=== PATIENT | female | born 1965 | race Two or more races ===

== ENCOUNTER 2025-06-25 13:00 | Emergency (ER) | payer MEDICAID, SELFPAY ==
[2025-06-25 13:58] VITALS: PULSE 100; RESP 20; O2SAT 97
--- NOTE | 2025-06-25 14:14 | EDNOTE_ITS ---
ED General RME/HPI General Chief complaint: Weakness Stated complaint: LEFT LWR BACK PAIN RADIATE FRONT W/ WEAK & HIGH BP Time Seen by Provider: 06/25/25 14:08 Arrival date/time: 06/25/25 13:00 RME / HPI RME / HPI narrative: DR. ANDERSON MAIN ED EVALUATION: 60-year-old female with a history of diabetes presents with left lower back pain radiating to the anterior lower abdomen. Blood glucose of 135 on arrival. No additional symptoms reported. Patient denies any tobacco, alcohol, or substance use. Related Data Allergies Allergy/AdvReac Type Severity Reaction Status Date / Time No Known Allergies Allergy Verified 06/25/25 15:05 Review of Systems Review of Systems Systems Reviewed: All systems reviewed, normal except as documented Past Medical History Past Medical History ENDOCRINE: Positive Diabetes Mellitus Type 2 Social History SMOKING STATUS: Never smoker SUBSTANCE USE: does not use ALCOHOL: Never ED Exam Narrative Physical exam: Physical Exam: General: The vital signs were reviewed. The patient is non-toxic, in no apparent distress and appears healthy with a patent airway, no respiratory distress and has no apparent circulatory problems. Head & Scalp: Normocephalic, atraumatic. Face: Appears normal and is without lesions, deformity. Ears: Left external pinna appears normal. Right external pinna appears normal. Eyes: The sclera is anicteric. No obvious photophobia. The Left and Right Orbit/Lid/Conjunctiva appears normal without swelling, discoloration or injection. Nose: The nose is without deformity, discharge or tenderness; Throat: Appears normal. The mucous membranes are pink and moist without exudates, redness or mass seen. The tongue appears normal. Neck: The neck is supple and no apparent mass or adenopathy. Chest: The chest wall is normal in size and symmetry and has no chest wall tenderness or crepitus. The patient displays normal ventilator effort without retractions, accessory muscle use and has adequate air movement bilaterally with no wheezes and no rales. Cardiovascular: Regular rate and rhythm; No murmurs, rubs, or gallops; Gastrointestinal: The abdomen appears normal. No obvious hernias or mass. The abdomen is soft and benign, non-distended, with no pain, no guarding and no rebound tenderness. Bowel sounds are present and normal sounding. No CVA tenderness. Genitourinary: Back/Spine: Inspection appears normal she has left lumbar iliolumbar discomfort but is not palpable does not seem to be worse with movement. There is no rash there is no lesions. Extremities/Musculoskeletal/lymphatic: The bilateral upper and lower extremities are warm. There is no evidence of arterial insufficiency. There is no evidence of venous insufficiency/edema. The patient spontaneously moves bilateral upper and lower extremities with no pain and no limitation of movement. There is no apparent, injury or trauma. Skin: The skin is warm, dry and intact. No rashes. No petechia. No purpura. No abnormal bruising. The color is appropriate with no cyanosis. Mental status/Psychiatric: Mental status is appropriate for age. The patient has no apparent delusions, visual hallucinations, no apparent audible hallucinations. The patient has no apparent suicidal thoughts/ideation and no apparent homicidal thoughts/ideation. Neurological: The patient is awake, alert, interactive, cordial, cooperative and is oriented to name and situation. The patient follows commands and answers historical question with no impairment. There is no visual disturbance apparent. The pupils are equal and reactive bilaterally with normal eye movements and no diplopia The bilateral upper and lower extremities have normal strength, normal range of motion and normal functioning. The gait, station and balance appear to be baseline with no acute change Course Quality Measures none Orders Category Date Time Status EKG (ED ONLY) *Do not use* NOW Care 06/25/25 14:15 Completed NPO NOW Care 06/25/25 14:15 Active Diet NPO (NOW) Diet 06/25/25 14:[address] abdomen pelvis wo con Stat Exams 06/25/25 14:[address] lumbar spine wo con Stat Exams 06/25/25 14:14 Completed EKG (ED Only) Stat Exams 06/25/25 14:15 Draft B-Type Natriuretic Peptide Stat Lab 06/25/25 14:57 Completed CBC Stat Lab 06/25/25 14:57 Completed Comprehensive Metabolic Panel Stat Lab 06/25/25 14:57 Completed HCG Qualitative,Urine Stat Lab 06/25/25 14:30 Completed Lactate (Lactic Acid) Stat Lab 06/25/25 14:57 Completed Lipase Stat Lab 06/25/25 14:57 Completed Troponin I Stat Lab 06/25/25 14:57 Completed Urinalysis Stat Lab 06/25/25 14:30 Completed Urinalysis, C/S if Indicated Stat Lab 06/25/25 14:30 Completed Sodium Chloride 0.9% 1000 ml [Ns] 1,000 ml Med 06/25/25 14:16 Discontinued IV 999 mls/hr Vital Signs Vital signs: Vital Signs Temperature 99 F 06/25/25 14:30 Pulse Rate 91 06/25/25 14:30 Respiratory Rate 18 06/25/25 14:30 Blood Pressure 164/99 H 06/25/25 14:30 Pulse Oximetry (%) 95 06/25/25 14:30 Oxygen Delivery Method Room Air 06/25/25 14:30 Discharge Plan Plan Patient Disposition: HOME (Self Care) Prescriptions/Referrals Referrals: No Primary/Family,Physician [Primary Care Provider] - In 1 week Problem List Clinical Impression: Calculus of distal left ureter, Hematuria Patient/Caregiver Discharge Instructions Education Materials: Kidney Stones Expectant Tx Additional Instructions: Today you have a kidney stone 2 mm at the distal left ureterovesicular junction. As discussed this will probably pass on its own. If you are getting worse in any way please return for reevaluation you can use a urine strainer to collect the stone and if 1 is found please submit this to your doctor for further evaluation. As we discussed drink plenty of fluids to avoid forming further stones. If you are getting sick in any way please return for reevaluation. Print Language: Chinese MDM Narrative [facility] hospital course: I, Chanell Salinas, am scribing for and in the presence of Dr. Anderson. Patient presents with left-sided flank and lower lumbar pain on the left that radiates to the right and around to the front which which has no obvious etiology. Patient seems to have moderate discomfort with this pain osseous etiology. Does not appear to be musculoskeletal as it is not movement dependent. Will get some basic labs also CT of the lumbar spine reveals no acute problem there is multiple levels of disc impingement of no significant as the CT of the abdomen revealed an obvious 2 mm distal ileal ureteral stone with hematuria suggesting her real problem is a renal stone. Reevaluation of the patient at 1700 hrs. shows patient be comfortable smiling her daughter is present we discussed the case at great length and they will give her a strainer and follow-up with her doctor return if getting worse. Clinical Information Provided by patient Medical Records Reviewed [facility] Meds/Rx Considered, not Ordered None Labs/Rad/Tests considered, not Ordered None Chronic Illness/Social Conditions Add or document further as needed: diabetes EKG EKG Interpretation narrative: My interpretation: EKG performed at 1421 hours, sinus rhythm, rate 84, no STEMI Lab Interpretation Labs: see narrative above Imaging Imaging interpretation: see narrative above Radiology reports / interpretation(s): Procedure(s): CT abdomen pelvis wo con Accession Number(s): [id number] cc: Endy Anderson MD; Toni Dominguez MD; NO PRIMARY/FAMILY,PHYSICIAN~ Examination: CT abdomen and pelvis without contrast. Coronal 3-D reconstructions. Sagittal 2-D reconstructions. Date and time of exam:June 25, 2025, 1434 hours INDICATIONS: Left-sided abdominal pain beginning today CTDI: vol (mGy): 19.2 DLP: (mGycm): 1140 Technique: Axial images of the abdomen have been obtained, 3 mm slice thickness Intravenous contrast material has not been administered. Low dose protocols were performed. One or more of the following dose reduction techniques were used; automated exposure control, adjustment of the mA and/or KV according to patient size, use of iterative reconstruction technique. Findings: Trace pericardial effusion No focal liver or splenic lesion Absent gallbladder No pancreatic or adrenal mass Mild left hydronephrosis secondary to 2 mm distal left ureterovesical junction calculus, image 214 No bowel obstruction Aorta normal size Normal appendix No bladder mass or bladder calculi IMPRESSION: Mild left hydronephrosis secondary to 2 mm distal left ureterovesical junction calculus Dictated By: Toni Dominguez MD Procedure(s): CT lumbar spine wo con Accession Number(s): [id number] cc: Endy Anderson MD; Toni Dominguez MD; NO PRIMARY/FAMILY,PHYSICIAN~ Examination: CT lumbar spine, without contrast. 2-D sagittal reconstructions. 2-D coronal reconstructions. 3-D reconstructions. Date and time of exam:2024 1436 hours INDICATIONS: Onset lower back pain today CTDI: vol (mGy):52.2 DLP: (mGycm):692 Technique: Multiple 1.25 mm axial sections of the lumbar spine without intravenous contrast have been obtained. 2-D sagittal and coronal reconstructions have been obtained. 3-D reconstructions have been obtained. Low dose protocols were performed. One or more of the following dose reduction techniques were used; automated exposure control, adjustment of the mA and/or KV according to patient size, use of iterative reconstruction technique. Findings: Adequate alignment lumbar vertebral bodies on lateral view Advanced degenerative disc disease L5-S1 No spondylolisthesis Lumbar pedicles, laminae, transverse and posterior spinous processes intact L5-S1 partially calcified 6 mm central lumbar disc bulge contiguous with the right and left S1 nerve roots, extending to both the right and left intervertebral foramen with mild bilateral L5 ganglionic compression L4-L5 2 mm central lumbar disc bulge L3-L4 moderate overall spinal stenosis, axial image 72, primarily secondary to prominent facet arthropathy and thickening of ligamentum flavum L2-L3 no disc protrusion L1-L2 no disc protrusion IMPRESSION: No lumbar fracture Advanced degenerative disc disease L5-S1 L5-S1 6 mm central lumbar disc bulge contiguous with the right and left S1 nerve roots, extending to the right and left intervertebral foramina with mild bilateral L5 ganglionic compression L4-L5 2 mm central lumbar disc bulge L3-L4 moderate overall spinal stenosis Dictated By: Toni Dominguez MD Medication Administration(s) Medication Administration History Discontinued Medications Sodium Chloride (Ns) 1,000 mls @ 999 mls/hr IV .Q1H1M ONE Stop: 06/25/25 15:16 Last Infusion: 06/25/25 16:27 Dose: Infused Documented By: Admin: 06/25/25 15:19 Dose: 999 mls/hr Documented By: STACY Diagnosis Differential diagnosis: nephrolithiasis, urinary tract infection, musculoskeletal strain
--- NOTE | 2025-06-25 14:15 | EKG_ITS ---
[facility] Test Date: 2025-06-25 Pat Name: LYUDMILA WALL Department: Room: - Gender: Female [employer] Admin: : 1965 Requested By: Endy Martines Order Number: [id number] Reading MD: Endy Martines Measurements Intervals [place] Rate: 84 P: 62 CT: 168 QRS: 5 QRSD: 77 T: 18 QT: 362 QTc: 429 Interpretive Statements SINUS RHYTHM LOW QRS VOLTAGE IN PRECORDIAL LEADS [QRS DEFLECTION < 1.0 mV IN CHEST LEADS] POSSIBLE ANTERIOR MYOCARDIAL INFARCTION , PROBABLY OLD [30 ms Q WAVE IN V3/V4, OR R < 0.2 mV IN V4] No previous ECG available for comparison /store/S0/[id number].pdf
[2025-06-25 14:30] VITALS: BP 164/99; PULSE 91; RESP 18; TEMP 37.2; O2SAT 95
[2025-06-25 15:04] LABS: Lactate (Lactic Acid) 1.1 mMol/L (0.4-2.0)
[2025-06-25 15:06] LABS: Collection Type, Urine Catheter
[2025-06-25] MEDS: SODIUM CHLORIDE 0.9% 1000 ML 1,000 ML 999 ML IV (15:19)
[2025-06-25 15:25] LABS: Basophils # (Auto) 0.0 Thou/mm3 (0.0-0.2); Basophils % (Auto) 0 % (0-2.5); Eosinophils # (Auto) 0.0 Thou/mm3 (0.0-0.5); Eosinophils % (Auto) 0 % (0-10); Hematocrit 42.8 % (36.0-46.0); Hemoglobin 13.9 g/dL (12.0-16.0); Immature Granulocytes Auto 0.03 Thou/mm3 (0.00-0.00); Lymphocytes # (Auto) 1.0 Thou/mm3 (1.0-4.8); Lymphocytes % (Auto) 10 % (10-50); Mean Corpuscular HGB Conc 32.5 g/dl (31.0-37.0); Mean Corpuscular Hemoglobin 28.4 pg (25.0-35.0); Mean Corpuscular Volume 88 fL (80-100); Monocytes # (Auto) 0.4 Thou/mm3 (0.0-0.8); Monocytes % (Auto) 4 % (0-12); Neutrophils # (Auto) 9.1 Thou/mm3 (1.8-7.7); Neutrophils % (Auto) 86 % (37-80); Nucleated Red Blood Cell # 0.00 Thou/mm3 (0.00-0.00); Nucleated Red Blood Cell % 0 /100 WBC (0); Platelet Count 317 Thou/mm3 (140-440); RDW Standard Deviation 45.0 fL (36.4-46.3); Red Blood Count 4.89 Miln/mm3 (4.00-5.20); White Blood Count 10.6 Thou/mm3 (3.6-11.0)
[2025-06-25 15:29] LABS: B-Type Natriuretic Peptide 41 pg/mL (0-100)
[2025-06-25 15:30] LABS: Alanine Aminotransferase 19 U/L (10-49); Albumin, Serum 4.7 gm/dL (3.5-5.0); Albumin/Globulin Ratio 1.8 (1.2-2.2); Alkaline Phosphatase 85 U/L (46-116); Anion Gap 12 (7-16); Aspartate Amino Transferase 19 U/L (0-34); BUN/Creatinine Ratio 14 Ratio (12-20); Bilirubin,Total 0.8 mg/dL (0.3-1.2); Blood Urea Nitrogen 10 mg/dL (9-23); Calcium 9.6 mg/dL (8.3-10.6); Calcium (Corrected) 9.6 mg/dL (8.5-10.1); Carbon Dioxide 24.5 mMol/L (20.0-31.0); Chloride 107 mMol/L (98-107); Creatinine (Component) 0.7 mg/dL (0.6-1.3); Globulin 2.6 gm/dL (2.3-3.5); Glucose 134 mg/dL (74-106); Lipase 39 U/L (12-53); Osmolality,Calculated 285 (275-295); Potassium 3.8 mMol/L (3.4-5.1); Sodium 143 mMol/L (136-145); Total Protein 7.3 gm/dL (5.7-8.2); Troponin I < 0.002 ng/mL (0.0-0.045); eGFR > 60 See Note
[2025-06-25 15:50] LABS: Bilirubin,Urine Negative (Negative); Blood,Urine 3+ (Negative); Clarity,Urine Clear (Clear/Hazy); Color,Urine Yellow (Lt Yel-Yel); Culture Indicated,Urine Not Indicated; Glucose, Urine Negative (Negative); Ketones,Urine 2+ (Negative); Leukocyte Esterase,Urine Negative (Negative); Nitrite,Urine Negative (Negative); PH,Urine 6.5 (5.0-7.0); Protein,Urine Negative (Neg - Trace); RBC,Urine 58 /hpf (0-3); Specific Gravity,Urine 1.016 (1.001-1.035); Squamous Epithelial Cell,Urine 1 /hpf (0-5); Urobilinogen,Urine Negative mg/dL (0.0-1.0); WBC,Urine 3 /hpf (0-5)
[2025-06-25 15:54] LABS: HCG Qualitative,Urine Negative
== END 2025-06-25 18:19 | disposition home or self-care (01) ==
PROVIDERS: Emergency Provider Emergency Medicine
DX: N13.2 Hydronephrosis with renal and ureteral calculous obstruction (principal); M48.061 Spinal stenosis, lumbar region without neurogenic claudication; M51.360 Other intervertebral disc degeneration, lumbar region with discogenic back pain only; M51.372 Other intervertebral disc degeneration, lumbosacral region with discogenic back pain and lower extremity pain; E11.9 Type 2 diabetes mellitus without complications
CPT/HCPCS: 36415; 72131; 74176; 80053; 81001; 81025; 83605; 83690; 83880; 84484; 85025; 93005; 96360; 99284; J7030